=== PATIENT | female | born 1965 | race Caucasian/White ===

== ENCOUNTER 2019-03-21 17:14 | Emergency (ER) | payer MEDICAID, SELFPAY ==
[2019-03-21 17:15] VITALS: BP 149/80; PULSE 108; RESP 16; TEMP 36.7; O2SAT 99; BMI 24.6
--- NOTE | 2019-03-21 17:48 | ED.VIS.GEN ---
History of Present Illness Chief Complaint: General Illness Informant: Patient Onset: Weeks - 1 Context: Gradual Onset Timing: Continuous Current Severity: Mild Maximum Severity: Moderate Narrative: Patient describes a weeklong illness that is almost completely gone as of yesterday, however starting yesterday she noticed that her urine was less and output, stronger appearing and smelling, and she is here out of concern for her kidney function because this happened a year or 2 ago when she had renal failure and wants to make sure that her kidneys are okay, she also states she started getting discomfort in her low back yesterday and is concerned that her kidneys hurt.. She denies any dysuria, hematuria. Last time she had a fever was 1 to 2 days ago. She has been having lots of myalgias and muscle spasms in her neck and arms and legs. She denies any abdominal pain but was nauseated and had some vomiting. No diarrhea. Cough is better now up too. Past Medical History - Allergies and Home Meds Allergies/Adverse Reactions: Allergies Penicillins Allergy (Verified 03/21/19 17:15) Anaphylaxis Primary Care Physician: Care Physician,No Primary [Primary Care Provider] - Smoking Status: Current every day smoker Review of Systems General: Reports: Fever, Malaise. Denies: Chills, Sweats Eyes: Denies: Visual changes - bilaterally, Diplopia ENT: Denies: Bilateral ear pain, Rhinorrhea, Sore throat Cardiovascular: Denies: Chest pain, Palpitations Respiratory: Reports: Cough. Denies: Dyspnea, Sputum, Dyspnea on exertion Gastrointestinal: Reports: Nausea, Vomiting. Denies: Abdominal pain, Diarrhea, Melena, Hematochezia Genitourinary: Denies: Dysuria, Hematuria, Frequency Musculoskeletal: Reports: Myalgias, Back pain - low. Denies: Neck pain, Swelling, Extremity Pain Skin: Denies: Rash, Wounds Neurological: Reports: Headache - mild. Denies: Weakness, Numbness Physical Exam Vital Signs/Narrative: Vital Signs Temp Pulse Resp BP Pulse Ox 03/21/19 17:15 98.0 F 108 H 16 149/80 H 99 Inital Vital Signs reviewed: Yes General: Well nourished, Well developed, No Acute Distress Head: Normocephalic, Atraumatic Eyes: Perrl, EOMI, - - mild photophobia ENT: Moist mucous membranes, No rhinorrhea Neck: Supple, Nontender Cardiovascular: Regular rate, Regular rhythm, No murmurs Respiratory: No distress, CTA bilaterally, Chest nontender Abdomen: Soft, Nontender, Nondistended, Normal bowel sounds Back: Normal Inspection, - - mild diffuse lumbosacral paraspinal tenderness. no rash.. Negative for: CVA tenderness, Spinal tenderness Extremities: Nontender, No edema Skin: Normal color, No rash Neurological: Alert, Oriented x3, Cranial nerves II-XII grossly intact, Normal Strength, Normal Sensation, Normal Gait Psychological: Normal affect, Normal Mood Diagnostic/Tx/Re-eval Laboratory Results 03/21/19 03/21/19 03/21/19 17:30 17:30 17:52 WBC 6.3 RBC 5.16 Hgb 15.2 H Hct 46.0 MCV 89.1 MCH 29.5 MCHC 33.0 RDW Std Deviation 46.1 H RDW Coeff of Sumit 14.1 Plt Count 206 MPV 11.5 Immature Gran % (Auto) 0.300 Neut % (Auto) 68.7 Lymph % (Auto) 21.9 [place] % (Auto) 7.5 Eos % (Auto) 1.1 Baso % (Auto) 0.5 Absolute Neuts (auto) 4.3 Absolute Lymphs (auto) 1.37 Nucleated RBC % 0 Sodium 137 Potassium 3.7 Chloride 99 Carbon Dioxide 32.0 Anion Gap 6 BUN 11 Creatinine 0.88 Estim Creat Clear Calc 75.44 Est GFR (MDRD) Af Amer 87 Est GFR (MDRD) Non-Af 72 BUN/Creatinine Ratio 12.6 Glucose 135 H Calcium 9.6 Urine Color Dannielle Urine Clarity Cloudy Urine pH 6.0 Ur Specific Royal 1.020 Urine Protein 30 H Urine Glucose (UA) Normal Urine Ketones Negative Urine Occult Blood 150 H Urine Nitrite Positive H Urine Bilirubin 6 H Urine Urobilinogen 8 H Ur Leukocyte Esterase 100 H Urine RBC 0-5 SEEN Urine WBC 10-25 SEEN Ur Squamous Epith Cells 0-5 SEEN Calcium Oxalate Crystal 1+ Urine Bacteria 4+ Urine Mucus 0 SEEN - Medical Decision Making As above, her renal function is normal and his urine is showing indicators consistent with infection. She does not have pyelonephritis. I suspect she has a viral syndrome for the past week in addition to now urinary tract infection, lower. We will treat her with Bactrim, give her a dose of Toradol prior to discharge, she is comfortable following up. Culture sent. ED Disposition - Plan for ED Patient: Disposition: Home or Assisted Living Diagnosis: Lower urinary tract infection, acute, Viral syndrome Instructions: VIRAL SYNDROME (Adult), Urinary Tract Infections in Women Prescriptions: Smz/Tmp Ds [Bactrim Ds] 1 tab PO BID #14 tab Prescription Printed Referrals: Dasia Arteaga [NON-STAFF] - 3-5 Days if not improving (or your own doctor)
[2019-03-21] MEDS: Acetaminophen 500 MG Tablet 1000 MG PO (18:03)
[2019-03-21 18:05] LABS: Mucous, Urine 0 SEEN /hpf (<or=2+)
[2019-03-21 18:13] LABS: Color, Urine Amber (Yellow); Glucose, Dipstick Normal (Normal); Ketone-Dipstick Negative (Negative); Leukocyte Esterase-Dipstick 100 /ul (Negative); Nitrite-Dipstick Positive (Negative); Occult Blood-Urine 150 /ul (Negative); Protein-Dipstick 30 mg/dl (Negative); Urine Clarity Cloudy (Clear); Urine Urobilinogen 8 mg/dl (Normal)
[2019-03-21 18:16] LABS: Absolute Lymphocyte Count 1.37 X10^3/uL (0.83-4.51); Absolute Neutrophil Count 4.3 X10^3/uL (2.0-7.7); Basophil# 0.03 X10^3/uL; Basophil% 0.5 % (0-1); Eosinophil# 0.07 X10^3/uL; Eosinophils% 1.1 % (0-5); Hemoglobin 15.2 g/dL (12.0-15.0); Lymphocyte # 1.37 X10^3/ul (4.0); Lymphocyte % 21.9 % (19-41); Mean Corpuscular Hgb 29.5 pg (27.0-32.0); Mean Corpuscular Volume 89.1 fL (81-99); Mean Platelet Vol. 11.5 fl (6.2-12.0); Monocyte# 0.47 X10^3/uL; Monocyte% 7.5 % (0-10); NRBC Flagged by Analyzer 0 % (0-5); Neutrophil % 68.7 % (47-70); Platelet Count 206 K/mm3 (150-450); RBC Distribution Width CV 14.1 % (11.6-14.6); RBC Distribution Width SD 46.1 fl (35.1-43.9); Red Blood Count 5.16 M/mm3 (4.2-5.4); White Blood Count 6.3 K/mm3 (4.4-11.0)
[2019-03-21 18:22] LABS: Urine Bilirubin Dipstick 6 mg/dL (Negative)
[2019-03-21 18:29] LABS: White Blood Cells 10-25 SEEN /hpf (0-5)
[2019-03-21 18:30] LABS: Bacteria 4+ /hpf (None Seen); Calcium Oxalate Crystals Ur 1+ /hpf (<or=2+); Red Blood Cells-Urine 0-5 SEEN /hpf (0-5); Squamous Epithelial Cells - UA 0-5 SEEN /hpf (5-10)
[2019-03-21 18:31] LABS: Anion Gap 6 (5-15); BUN 11 mg/dL (7-18); BUN/Creat Ratio 12.6 RATIO (10-20); Calcium,Total 9.6 mg/dL (8.5-10.1); Chloride 99 mmol/L (98-107); Creatinine, Serum 0.88 mg/dL (0.55-1.02); EST Glomerular Filtration Rate 72 mL/min (>60); Est Glom Filt Rate - Afr Amer 87 mL/min (>60); Estimated Creatinine Clearance 75.44 ml/min; Glucose 135 mg/dL (74-106); Potassium 3.7 mmol/L (3.5-5.1); Sodium Level 137 mmol/L (136-145)
[2019-03-21 19:14] VITALS: BP 168/82; PULSE 99; RESP 15; O2SAT 96
[2019-03-21] MEDS: Ketorolac 30 MG/ML Syringe IV (20:23)
[2019-03-21] MEDS: Smz/Tmp Ds Tablet 1 TABLET PO (20:23)
[2019-03-21 20:29] VITALS: BP 150/88; PULSE 89; RESP 16; O2SAT 97
--- NOTE | 2019-03-21 20:57 | ED.RN ---
PT WAS OBSERVED ON SHOT TIME FOR 20MIN NO REACTION NOTED BY THIS NURSE.
== END 2019-03-21 20:58 | disposition home or self-care (01) ==
PROVIDERS: Emergency Provider Emergency Medicine
DX: N39.0 Urinary tract infection, site not specified (principal); B34.9 Viral infection, unspecified; R05 Cough; R51 Headache; Z87.448 Personal history of other diseases of urinary system; F17.200 Nicotine dependence, unspecified, uncomplicated
CPT/HCPCS: 80048; 81001; 85025; 87077; 87086; 87088; 87186; 96374; 99284; A4216

== ENCOUNTER 2023-12-15 15:32 | Emergency (ER) | payer MEDICAID, SELFPAY ==
[2023-12-15 15:33] VITALS: BP 167/117; PULSE 97; RESP 18; TEMP 36.2; O2SAT 97; BMI 28.0
--- NOTE | 2023-12-15 15:44 | VDLE_ITS ---
Reason For Study: Left leg pain RIGHT LEFT CFV is compressible, spontaneous, phasic, GSV is normal. competent and demonstrates normal CFV is compressible, spontaneous, phasic, augmentation. competent, and demonstrates normal Procedure augmentation. This is a venous duplex using B-mode, color FV is compressible, spontaneous, phasic, flow and spectral Doppler. competent and demonstrates normal Exam performed portable in ED. augmentation. A preliminary report was called and/or faxed POP V is compressible, spontaneous, phasic, to Dr. Simeon. competent and demonstrates normal augmentation. T/P Trunk is compressible. PTV is compressible. LT PerV is compressible. Nonvascularized structure is noted in the left popliteal space that measures 1.42 x 2.54 x 3.91 cm. VL/Venous Duplex US, Unilateral Interpretation Summary Deep veins of the left lower extremity are patent and compressible segmentally. There is no evidence of left lower extremity deep vein thrombosis. The left great saphenous vein reggie ears patent and compressible segmentally. Nonvascularized structure is noted in the left popliteal space that measures 1. 42 x 2.54 x 3.91 cm Ordering Physician: Slim Simeon Performed By: Selma Howell RVT
--- NOTE | 2023-12-15 15:48 | EDS_ITS ---
HPI History of Present Illness Chief Complaint: Lower Extremity Injury Informant: patient Narrative Narrative: Patient presents with pain in both of her eyes, worse on the right, along with redness in her right eye had some tearing or clear discharge. She states she is not sure of the status of her contacts. Has been for 3 days. States she has soft contacts that are not disposables, but she works split shifts overnight and sleeps in her contacts often which she was told she could do for up to 24 hours. She states she pulled the contact out of her left eye couple days ago but it still bothering her and she states a coworker or friend told her it looks like there is still 1 in there. She states she feels like she can see out of her left eye but not her right. States she has been repeatedly trying to get the contact out of her right eye but cannot. Also, she states that her left popliteal fossa has been bothering her for the past month. She had swelling in her ankle she feels like it is better now, she was told to get an ultrasound of her leg because it may be a blood clot although she has never had 1 before and denies any long travel, surgery, hospitalization in the past couple months, and states that she has not had the ultrasound done b ut would like that done now while she is here. [facility] Medical History (Updated 12/15/23 @ 17:[address] Slim Simeon MD) Diabetes Hypertension Home Medications ?Medication ?Instructions ?Recorded ?Last Taken ?Type Citalopram 20 mg PO DAILY 03/21/19 Unknown History alprazolam 1 mg tablet 1 mg PO BID PRN PRN Anxiety 03/21/19 Unknown History amlodipine 5 mg tablet 5 mg PO DAILY 03/21/19 Unknown History cyclobenzaprine 5 mg tablet 5 mg PO BID 03/21/19 Unknown History metformin 500 mg tablet,extended 500 mg PO DAILY 03/21/19 Unknown History release 24 hr sulfamethoxazole 800 1 tab PO BID #14 tabs 03/21/19 Unknown Rx mg-trimethoprim 160 mg tablet zolpidem 10 mg tablet 10 mg PO QHS 03/21/19 Unknown History moxifloxacin 0.5 % eye drops 1 drp EACH EYE Q1H 7 days #3 mL 12/15/23 Unknown Rx Allergy/AdvReac Type Severity Reaction Status Date / Time Penicillins Allergy Anaphylaxis Verified 12/15/23 17:13 Social History Smoking Status: Never smoker ROS ROS ED Constitutional Constitutional ED: Denies chills or fever(s) Eyes Eyes: Reports as per HPI, blurry vision right and eye pain ENT ENT ED: Denies ear pain, rhinorrhea or sore throat Cardiovascular Cardiovascular: Denies chest pain or syncope Respiratory/Chest Respiratory/Chest: Denies dyspnea Musculoskeletal Musculoskeletal: Reports extremity pain; Denies neck pain Integumentary Denies Abrasions, rash or wounds Neurologic Neurologic: Denies paresthesias or weakness EXAM Physical Exam Const Vital Signs: 12/15/23 15:33 Temperature 97.2 F L Temperature Source Temporal Pulse Rate 97 Respiratory Rate 18 Blood Pressure 167/117 H Blood Pressure Mean 133 Pulse Ox 97 Oxygen Delivery Method Room Air Positive well nourished and well developed General Appearance ED: well developed and NAD HEENT atraumatic; Negative for tenderness Mouth ED: Yes oral and palatal mucosa normal and Yes lips normal Mouth: oral and palatal mucosa normal and lips normal Eyes PERRL and EOMs intact bilaterally Eyes Narrative: Conjunctival injection diffusely right and left eyes, the right is worse. She is photophobic bilaterally. There is no sign of periorbital cellulitis or palpebral edema in either eye or active discharge either 1. Neck full ROM and supple Back/Spine normal ROM and normal to inspection Extremity Extremity Narrative: No palpable cords either extremity. There is maybe some mild pretibial edema in the left lower extremity below the knee. Neuro oriented x3, no focal motor deficits and no sensory deficits noted Sensorium / Orientation: alert Psych mental status grossly normal and thought process normal Skin no wounds Lesions: no lesions Rashes: no rashes MDM MDM MDM Narrative Medical decision making narrative: There is no contact left in the patient's eyes. I everted the eyelids bilaterally, use tetracaine for diffuse exploration clinically. I did slit-lamp exam with and without fluorescein staining, she has at least 3 corneal ulcers on the right cornea, explaining why there is significant bleeding more injection there, I see no areas of dye uptake on the left. There is no hyphema or hypopyon on either cornea, and both anterior chambers are deep and quiet. She felt a lot better after tetracaine consistent with surface etiology of her pain. Discussed with ophthalmology she does not have an care process manager, Dr. Romano was on-call. He recommends moxifloxicin drops and following up closely in the office, patient advised to leave her contacts out and just wear glasses which she is comfortable with. With regards to her left lower extremity we did a duplex Doppler ultrasound it was negative for DVT or SVT, and shows a Randolph's cyst which is probably giving the patient her symptoms in the popliteal fossa. Given appropriate discharge instructions, she wants to follow-up with someone to see if she needs surgery fo r this, given orthopedics. Radiography Diagnostic Testing: I reviewed images of the venous duplex Doppler as well as the radiology result which I agree with. Management Discussion w/another healthcare provider: Health Officer (Ophthalmology Dr. Romano) Discharge Plan Triage Chief Complaint: Lower Extremity Injury Other Complaint: Eye Problem ED Provider: Slim Simeon Dx/Rx/DC Orders Clinical Impression: Synovial cyst of popliteal space [Randolph], left knee, Corneal ulcer, right, Acute conjunctivitis of left eye Instructions: ED Randolph's Cyst, ED Corneal Ulcer Prescriptions: New moxifloxacin 0.5 % drops 1 drp EACH EYE Q1H 7 Days Qty: 3 0RF Rx Instructions: while awake No Action alprazolam 1 mg tablet 1 mg PO BID PRN PRN (Reason: Anxiety) Patient Comments: Take 1 tablet by mouth twice a day as needed amlodipine 5 MG tablet 5 mg PO DAILY Patient Comments: Take 1 tablet by mouth once daily. zolpidem 10 mg tablet 10 mg PO QHS Patient Comments: Take 1 tablet by mouth at bedtime as needed metformin 500 MG tablet 500 mg PO DAILY cyclobenzaprine 5 MG tablet 5 mg PO BID Citalopram 20 MG tablet 20 mg PO DAILY sulfamethoxazole-trimethoprim 1 TABLET tablet 1 tab PO BID Qty: 14 0RF Primary Care Provider: Beatrice Montana NEEDLE PROCESS FELT GOODS SUPERVISOR Referrals: Giorgi Velasco DO [Med Staff - Active Staff] - (orthopaedics) Jose Romano MD [Med Staff - Active Staff] - As soon as possible () Activity Restrictions/Additional Instructions: try to be seen by your manager client support in the next 3 days if you are unable to be seen, call the eye doctor listed above Dr. Romano and he will see you tomorrow Monday. No contacts until you are seen or told otherwise. You can wear your glasses. Use the antibiotic drops every hour while awake until you are seen by optometry or ophthalmology and told otherwise. Print Language: Yakut Disposition Disposition: Home, Self Care
[2023-12-15] MEDS: Tetracaine 0.5% Ophthalmic Bottle 1 DRP EACH EYE (15:50)
[2023-12-15] MEDS: Fluorescein 1 MG STRIP 1 STRIP EACH EYE (15:50)
== END 2023-12-15 17:33 | disposition home or self-care (01) ==
PROVIDERS: Emergency Provider Emergency Medicine; PCP Clinical Nurse Specialist; Referring Provider Emergency Medicine; Visit Provider Emergency Medicine
DX: M71.22 Synovial cyst of popliteal space [Baker], left knee (principal); E11.9 Type 2 diabetes mellitus without complications; H16.001 Unspecified corneal ulcer, right eye; I10 Essential (primary) hypertension; H10.32 Unspecified acute conjunctivitis, left eye
CPT/HCPCS: 93971; 99284

== ENCOUNTER 2024-02-19 14:43 | Emergency (ER) | payer MEDICAID, SELFPAY ==
[2024-02-19 14:44] VITALS: BP 171/113; PULSE 96; RESP 15; TEMP 35.9; O2SAT 97; BMI 28.3
[2024-02-19] MEDS: Fluorescein 1 MG STRIP 1 STRIP LEFT EYE (14:59)
[2024-02-19] MEDS: Tetracaine 0.5% Ophthalmic Bottle 1 DRP LEFT EYE (15:00)
--- NOTE | 2024-02-19 15:31 | EX.ED.VIS.EY ---
HPI <MEHRDAD Ramirez - Last Filed: 02/19/24 15:57> History of Present Illness Chief Complaint: Eye Problem Narrative Narrative: Patient is a 58-year-old female with history of anxiety, diabetes who presents to the emergency department with complaints of right eye pain. Patient states yesterday, she put in her contact, and immediately heard so she pulled it out and there was a small rip in it. She states that her eye will became irritated and now she is having difficulty opening it. Patient is the pain is more severe going to her cheek. She states that every time she opens her eyes it immediately starts watering and she cannot see. PFS <MEHRDAD Ramirez - Last Filed: 02/19/24 15:57> [facility] Medical History (Updated 02/19/24 @ 15:54 by MEHRDAD Ramirez) Diabetes Hypertension Home Medications ?Medication ?Instructions ?Recorded ?Last Taken ?Type Citalopram 20 mg PO DAILY 03/21/19 Unknown History alprazolam 1 mg tablet 1 mg PO BID PRN PRN Anxiety 03/21/19 Unknown History amlodipine 5 mg tablet 5 mg PO DAILY 03/21/19 Unknown History cyclobenzaprine 5 mg tablet 5 mg PO BID 03/21/19 Unknown History metformin 500 mg tablet,extended 500 mg PO DAILY 03/21/19 Unknown History release 24 hr sulfamethoxazole 800 1 tab PO BID #14 tabs 03/21/19 Unknown Rx mg-trimethoprim 160 mg tablet zolpidem 10 mg tablet 10 mg PO QHS 03/21/19 Unknown History moxifloxacin 0.5 % eye drops 1 drp EACH EYE Q1H 7 days #3 mL 12/15/23 Unknown Rx ciprofloxacin HCl 0.3 % eye drops 2 drp RIGHT EYE Q6H 7 days #5 mL 02/19/24 Unknown Rx ketorolac 0.4 % eye drops 1 drp RIGHT EYE Q6H 4 days #5 mL 02/19/24 Unknown Rx Allergy/AdvReac Type Severity Reaction Status Date / Time Penicillins Allergy Anaphylaxis Verified 02/19/24 14:44 Social History Smoking Status: Never smoker ROS <MEHRDAD Ramirez - Last Filed: 02/19/24 15:57> ROS ED ROS Narrative Constitutional: Negative for fever, chills, weight loss, weakness Eyes: Negative for vision loss, vision change, double vision. Positive for right eye pain, right eye drainage ENT: Negative for any sore throat, ear pain, congestion Cardiovascular: Negative for any chest pain, tightness, palpitations Respiratory: Negative for any cough, sputum production, hemoptysis, dyspnea, dyspnea on exertion, orthopnea Gastrointestinal: Negative for any abdominal pain, nausea, vomiting, diarrhea, constipation, blood in stool, blood in vomit : Negative for any urinary frequency, dysuria, retention, blood in urine Muscle skeletal: Negative for any neck pain, back pain Neurological: Negative for any headache, syncope, dizziness Skin: Negative for any rashes, itching, abrasions, lacerations Psychiatric: Negative for any depression, anxiety, stress, suicidal ideation, homicidal ideation Hematologic: Negative for any excessive bruising, easy bleeding EXAM <MEHRDAD Ramirez - Last Filed: 02/19/24 15:57> Physical Exam Narrative Exam Narrative: Vital signs reviewed. Prior to my examination, the patient was unable to open her eye secondary to pain. The lights were off. I did place 2 drops of tetracaine to the right eye. HEET: Head normocephalic atraumatic, TMs clear bilaterally. Posterior pharynx is clear, moist mucous membranes. Nares clear bilaterally. Patient's conjunctiva is injected, I was able to use tetracaine as well as fluorescein, I did see to areas of corneal abrasion. There is no Sidel sign. Patient did have relief after tetracaine drops placed. Pupils are equal round reactive to light. Neck: Supple with no lymphadenopathy or tenderness. No signs of meningismus. Cardiac: Regular rate and rhythm no murmurs gallops or rubs, equal peripheral pulses bilaterally. Respiratory: Lungs clear to auscultation bilaterally. No chest tenderness. Abdomen: Soft, nontender, nondistended. No abdominal bruit or pulsatile masses. No hepatosplenomegaly Extremities: No peripheral edema, no signs of gross trauma or deformity. Active full range of motion of all extremities. Neuro: Cranial nerves II through XII intact, no focal neurological deficits. Skin: Clean dry and intact with no rash, purpura, petechiae, vesicles or pustules. Backs/flank: No CVA tenderness, no midline spinal tenderness, no deformity. Psych: Normal mood and affect. No SI, HI or acute psychosis. Const Vital Signs: 02/19/24 14:44 Temperature 96.6 F L Temperature Source Temporal Pulse Rate 96 Respiratory Rate 15 Blood Pressure 171/113 H Blood Pressure Mean 132 Pulse Ox 97 Oxygen Delivery Method Room Air Positive well nourished and well developed General Appearance ED: well developed [facility] <MEHRDAD Ramirez - Last Filed: 02/19/24 15:57> [facility] Treatment and Re-Evaluation Narrative: Differential diagnosis includes however is not limited to: Corneal abrasion, globe rupture, foreign body Patient appears generally well, vital signs are stable, patient is nontoxic-appearing. Presenting to the [facility] with pain to the right eye after placing a rip contact to the right eye. I was able to use a fluorescein stain, I did see some areas of corneal abrasion. Patient did have relief of symptoms after tetracaine drops placed. At this time, patient diagnosed with corneal abrasion, patient will be placed on Cipro drops as well as ketorolac eyedrops. She will follow-up with Dr. Shelton with ophthalmology. Given return precautions. All questions answered, stable for discharge. <Dr. Yoshi Milner, DO - Last Filed: 02/19/24 19:23> [facility] Narrative Medical decision making narrative: I have personally performed a face to face assessment of the patient and have reviewed the DONAL Note. I performed a substantive portion of the visit including all aspects of the following. My mosher findings include: History: Patient presents with right eye pain that began yesterday. Patient states that she placed her contact lens into her right eye. Patient thinks it was torn. Patient states she still feels like there is something in her eye. Patient admits to some redness and drainage from her right eye. Patient also admits to some photophobia and blurred vision. Patient denies any fevers or chills. Exam: Vital signs are stable except for an elevated blood pressure of 171/113. Patient is afebrile. Patient is in no acute distress. Pupils are equal, round, and reactive to light bilaterally. The extraocular muscles are intact. Conjunctiva was injected on the right. Cranial nerves II through XII are intact. There are no focal motor or sensory deficits noted. There is a corneal abrasion of the superior aspect of the right cornea. There is no hyphema noted. Anterior chamber was clear. Patient was unable to tolerate funduscopic examination. Medical Decision Making: The patient was advised that her pain is most likely coming from her corneal abrasion. Patient was given ciprofloxacin ophthalmic drops and ketorolac ophthalmic drops. Patient was instructed to follow-up with her primary care physician in 3 to 5 days. Patient was also given a referral for ophthalmology. Patient was instructed to return if worse in any way. Patient understood and was agreeable with the plan. All questions were answered. Discharge Plan Triage Chief Complaint: Eye Problem ED Midlevel Provider: Joshua Hanson ED Provider: Yoshi Milner Dx/Rx/DC Orders Clinical Impression: Abrasion, corneal Instructions: Corneal Injury, ED Corneal Abrasion, ED Corneal Injury, Contact Lens Prescriptions: New ciprofloxacin HCl 0.3 % drops 2 drp RIGHT EYE Q6H 7 Days Qty: 5 0RF Rx Instructions: administer while awake ketorolac 0.4 % drops 1 drp RIGHT EYE Q6H 4 Days Qty: 5 0RF No Action alprazolam 1 mg tablet 1 mg PO BID PRN PRN (Reason: Anxiety) Patient Comments: Take 1 tablet by mouth twice a day as needed amlodipine 5 MG tablet 5 mg PO DAILY Patient Comments: Take 1 tablet by mouth once daily. zolpidem 10 mg tablet 10 mg PO QHS Patient Comments: Take 1 tablet by mouth at bedtime as needed metformin 500 MG tablet 500 mg PO DAILY cyclobenzaprine 5 MG tablet 5 mg PO BID Citalopram 20 MG tablet 20 mg PO DAILY sulfamethoxazole-trimethoprim 1 TABLET tablet 1 tab PO BID Qty: 14 0RF moxifloxacin 0.5 % drops 1 drp EACH EYE Q1H 7 Days Qty: 3 0RF Rx Instructions: while awake Primary Care Provider: Beatrice Montana NP Referrals: Zachary Shelton MD [Med Staff - Active Staff] - Beatrice Montana PICC NURSE, PICC NURSE-C [Primary Care Provider] - Activity Restrictions/Additional Instructions: You need to follow-up with an terminal gauger supervisor. Use the Cipro eyedrops every 6 hours for a week and use the Toradol eyedrops for pain for 4 days. Print Language: Norwegian Disposition Disposition: Home, Self Care Discharge Date/Time: 02/19/24 16:06
== END 2024-02-19 16:06 | disposition home or self-care (01) ==
PROVIDERS: Emergency Provider Emergency Medicine; PCP Clinical Nurse Specialist; Visit Provider Emergency Medicine
DX: S05.00XA Injury of conjunctiva and corneal abrasion without foreign body, unspecified eye, initial encounter (principal); E11.9 Type 2 diabetes mellitus without complications; F41.9 Anxiety disorder, unspecified; I10 Essential (primary) hypertension; X58.XXXA Exposure to other specified factors, initial encounter
CPT/HCPCS: 99282

== ENCOUNTER 2024-10-04 17:06 | Emergency (ER) | payer MEDICAID, SELFPAY ==
[2024-10-04 17:06] VITALS: BP 223/104; PULSE 77; RESP 18; TEMP 36.8; O2SAT 98; BMI 27.1
--- NOTE | 2024-10-04 17:16 | EX.ED.VIS.EY ---
HPI History of Present Illness Chief Complaint: Eye Problem Detail of Chief Complaint: Blunt trauma left eye Informant: patient and family Onset/Context/Timing Location: Left Eye Onset: Today (Approximately 3 hours ago) Context: Sudden Onset Timing: Continuous Current Severity: Severe Maximum Severity: Severe Worsened by: Lites Relieved by: Nothing Associated Symptoms Associated Symptoms - Eyes: Foreign body sensation, Pain, Photophobia, Redness and - (Patient believes her contact is still on her globe.); Negative for Burning, Crusting, Drainage, Eyelid swelling, Itching or Matting Visual Changes: left: Blurred vision History of injury: Yes and - (Mowing the yard and reportedly a rock struck her.) Visual correction: Corrective contact lenses Narrative Narrative: Patient is a 59-year-old woman. She has history hypertension, type 2 diabetes not on insulin and depression who presents with left eye pain after trauma. She has been attempting to get her contact out. She states she cannot get it out. She denies history of glaucoma. She reports pain is keeping her eye closed. She is tearing. She states she now has a significant headache on the left side. Prior similar symptoms: No Recent Illness/Hospitalization: No [facility] Medical History Diabetes Hypertension Home Medications ?Medication ?Instructions ?Recorded ?Last Taken ?Type Citalopram 20 mg PO DAILY 03/21/19 Unknown History alprazolam 1 mg tablet 1 mg PO BID PRN PRN Anxiety 03/21/19 Unknown History amlodipine 5 mg tablet 5 mg PO DAILY 03/21/19 Unknown History cyclobenzaprine 5 mg tablet 5 mg PO BID 03/21/19 Unknown History metformin 500 mg tablet,extended 500 mg PO DAILY 03/21/19 Unknown History release 24 hr sulfamethoxazole 800 1 tab PO BID #14 tabs 03/21/19 Unknown Rx mg-trimethoprim 160 mg tablet zolpidem 10 mg tablet 10 mg PO QHS 03/21/19 Unknown History moxifloxacin 0.5 % eye drops 1 drp EACH EYE Q1H 7 days #3 mL 12/15/23 Unknown Rx ciprofloxacin HCl 0.3 % eye drops 2 drp RIGHT EYE Q6H 7 days #5 mL 02/19/24 Unknown Rx ketorolac 0.4 % eye drops 1 drp RIGHT EYE Q6H 4 days #5 mL 02/19/24 Unknown Rx amlodipine 10 mg tablet 10 mg PO DAILY 10/04/24 Unknown History ciprofloxacin HCl 0.3 % eye drops 1 drp LEFT EYE Q4H 5 days #2.5 mL 10/04/24 Unknown Rx lisinopril 40 mg tablet 40 mg PO DAILY 10/04/24 Unknown History spironolactone 25 mg tablet 25 mg PO DAILY 10/04/24 Unknown History Allergy/AdvReac Type Severity Reaction Status Date / Time Penicillins Allergy Anaphylaxis Verified 10/04/24 17:08 Social History Smoking Status: Never smoker ROS ROS ED Eyes Eyes: Reports blurry vision left ENT ENT ED: Denies ear pain or rhinorrhea Cardiovascular Cardiovascular: Denies chest pain or palpitations Respiratory/Chest Respiratory/Chest: Denies cough, dyspnea or dyspnea on exertion Gastrointestinal Gastrointestinal: Denies nausea or vomiting Integumentary Denies Abrasions or rash Neurologic Neurologic: Reports headache(s); Denies paresthesias EXAM Physical Exam Const Vital Signs: 10/04/24 17:06 Temperature 98.3 F Temperature Source Oral Pulse Rate 77 Respiratory Rate 18 Blood Pressure 223/104 H Blood Pressure Mean 143 Pulse Ox 98 Oxygen Delivery Method Room Air Positive well nourished and well developed Constitutional Narrative: Patient is in obvious discomfort. She has a rag over her left eye. When I remove the rag she would not open her eye. She complained of a left-sided headache. General Appearance ED: well developed HEENT HEENT Narrative: Head is atraumatic and normocephalic. Ears are normal. Nares are patent. There is no dental trauma. Eyes Eyes Narrative: Sclera is injected on the left. There is no subconjunctival hemorrhage. There is no visible hyphema. Pupil is equal round reactive to light and accommodation. Extraocular muscles are intact. There is slight swelling of the left upper eyelid. Neck no lymphadenopathy, supple and no JVD Resp normal respiratory effort, no retractions and no use of accessory muscles Cardio regular rate and regular rhythm Neuro oriented x3 and CN's II-XII intact bilaterally Sensorium / Orientation: alert Psych Mood & Affect: anxious Skin no wounds Lesions: no lesions Rashes: no rashes Trauma: Negative for abrasion MDM MDM MDM Narrative Medical decision making narrative: Will anesthetize eye with tetracaine. Will have nurse assess visual acuity after she is anesthetized. Will perform slit-lamp examination and stain the left eye with foreseen. Concern is corneal abrasion, mechanism is not suggestive nor is the exam suggestive of a globe penetration. Will assess for flare cells once patient has been anesthetized and use of slit-lamp. Treatment and Re-Evaluation Narrative: I was informed the patient did not take her blood pressure medicine this morning. This is probably contributing to her elevated blood pressure along with the fact that she is not significant pain from ocular trauma. Will have nurse recheck her blood pressure since she is not in as much pain after her eye was anesthetized. She also was given a [place] tablet because of a unilateral headache. This is probably due to her blood pressure. Patient states when she goes home she will take her blood pressure medicine. Procedures Other Procedures Procedure(s): I was anesthetized with tetracaine and stained with fluorescein. There is no flare or cell noted. Patient does have corneal abrasions essentially from 4:00 to 7:00 inferior portion of the cornea. There was no contact noted. Upper eyelid was flipped there was no contact noted. [place] test is negative. Awaiting nurse to document visual acuity, 1828 Discharge Plan Triage Chief Complaint: Eye Problem ED Provider: Christian Merida Dx/Rx/DC Orders Clinical Impression: Abrasion of cornea, left, Ocular pain, left eye, Contusion of left upper eyelid, Accelerated essential hypertension Instructions: ED Corneal Abrasion, ED High Blood Pressure Hypertension Prescriptions: New ciprofloxacin HCl 0.3 % drops 1 drp LEFT EYE Q4H 5 Days Qty: 2.5 0RF Rx Instructions: administer while awake No Action alprazolam 1 mg tablet 1 mg PO BID PRN PRN (Reason: Anxiety) Patient Comments: Take 1 tablet by mouth twice a day as needed amlodipine 5 MG tablet 5 mg PO DAILY Patient Comments: Take 1 tablet by mouth once daily. zolpidem 10 mg tablet 10 mg PO QHS Patient Comments: Take 1 tablet by mouth at bedtime as needed metformin 500 MG tablet 500 mg PO DAILY cyclobenzaprine 5 MG tablet 5 mg PO BID Citalopram 20 MG tablet 20 mg PO DAILY sulfamethoxazole-trimethoprim 1 TABLET tablet 1 tab PO BID Qty: 14 0RF spironolactone 25 mg tablet 25 mg PO DAILY amlodipine 10 mg tablet 10 mg PO DAILY lisinopril 40 mg tablet 40 mg PO DAILY moxifloxacin 0.5 % drops 1 drp EACH EYE Q1H 7 Days Qty: 3 0RF Rx Instructions: while awake ciprofloxacin HCl 0.3 % drops 2 drp RIGHT EYE Q6H 7 Days Qty: 5 0RF Rx Instructions: administer while awake ketorolac 0.4 % drops 1 drp RIGHT EYE Q6H 4 Days Qty: 5 0RF Primary Care Provider: Beatrice Montana NP Referrals: Beatrice Montana NP, [facility] [Primary Care Provider] - 3-5 Days Activity Restrictions/Additional Instructions: contact David Montana NP to have your blood pressure checked in 3 to 5 days. Instill eyedrops as prescribed You should not wear your contacts for the next 5 days Print Language: Irish Disposition Disposition: Home, Self Care
[2024-10-04] MEDS: Tetracaine 0.5% Ophthalmic Bottle 1 DRP OPHTHALMIC (17:24)
[2024-10-04] MEDS: HYDROcodone Bitartrate/Apap 5/325 Tablet PO (18:37)
[2024-10-04 18:38] VITALS: BP 210/100
[2024-10-04 19:13] VITALS: BP 210/100; PULSE 74; RESP 16; TEMP 36.8; O2SAT 99
== END 2024-10-04 19:13 | disposition home or self-care (01) ==
PROVIDERS: Emergency Provider Emergency Medicine; PCP Clinical Nurse Specialist; Visit Provider Emergency Medicine
DX: S05.02XA Injury of conjunctiva and corneal abrasion without foreign body, left eye, initial encounter (principal); E11.9 Type 2 diabetes mellitus without complications; R51.9 Headache, unspecified; I10 Essential (primary) hypertension; S00.12XA Contusion of left eyelid and periocular area, initial encounter; X58.XXXA Exposure to other specified factors, initial encounter
CPT/HCPCS: 99283